=== PATIENT | female | born 1965 | race Caucasian/White ===

== ENCOUNTER 2019-02-10 16:55 | Inpatient (IN) | payer MEDICARE, MEDICAID ==
[~2019-02-10] VITALS: Ht 175.3 cm; Wt 74.0 kg
[2019-02-10] MEDS ORDERED: acetaminophen 325mg tablet PO PRN (19:30)
[2019-02-10] MEDS ORDERED: NICOTINE POLACRILEX 2 MG LOZENGE MM PRN (19:30)
[2019-02-10] MEDS ORDERED: hydrOXYzine 25 MG tablet PO PRN (19:30)
[2019-02-10] MEDS ORDERED: magnesium hydroxide 30ml (MOM) UD suspension PO PRN (19:30)
[2019-02-10 20:37] VITALS: BP 100/75
[2019-02-10] MEDS: mag hydrox/Alum hydrox/simeth 30ml oral suspension PO PRN (22:32)
--- NOTE | 2019-02-10 23:30 | NUR ---
Admission note: Pt admitted to floor at 2030 hours, accompanied by mehul Gill. pt was transferred from [facility] on a 5150 for dts after attempting suicide by overdose of medications. Pt was found down by neighbors performing a welfare check after family had not heard from her. pt was intubated and admitted to ICU due to respiratory failure and possible metabolic encephalopathy. Pt is now denying suicide attempt, stating that she was just medicating her pain and woke up in the hospital. Pt has a hx of suicide attempt and lost her brother and stepdad to suicide.
--- NOTE | 2019-02-11 00:50 | NUR ---
Nursing Progress Note: Chief Complaint: Depression Legal hold: 5150 Client on involuntary status for DTS. Why are they here: Pt was admitted from [facility] on a 5150 for dts after attempting suicide by od of various medications. pt was found down by neighbors conducting a welfare check. pt was intubated and admitted to icu for respiratory failure. Pt denies attempting suicide, but has a hx of suicide attempt in past. pt lost her brother and stepfather to suicide. Assessment What has happened this shift: Pt was brought to [facility] at 2030, appearing clean, dressed in pajamas. Pt was oriented to unit, given burrito for snack before 1:1. pt is cooperative and friendly during assessment, but appears to be minimizing her actions. She denies attempting suicide, stating that she was just sad and lonely and took medication to feel better. She reports being close to her daughter and states that she loves her grandchildren too much to commit suicide. Pt is planning [place] be with her new boyfriend. Pt denies having a mental health dx, but has a hx of suicide attempt. pt was given tylenol for chronic back pain. Pt is hard of hearing and uses hearing aids, but only brought her left one with her. S/I, H/I:denies A/VH: denies Sleep:asleep now ADL's:showered before arriving, independent. Group attendance:n/a Were meds taken:yes Any med S/E: no Mental Status Exam Appearance:clean, neat Eye contact:direct Behavior: cooperative Speech:clear Mood:tired Affect:congruent to mood Thought process:linear Thought Content:being fatigues Cognition:A/O x4 Insight:poor Judgment:poor Interventions PRN's used:tylenol Therapeutic interventions:1:1 assessment, establishment of rapport, active listening, reality orientation, medication administration/education/monitoring, encouragement to perform personal care and attend groups, maintained Q 15 min safety checks. Restraints/seclusion/emergency medication:N/A Justification of continued inpatient treatment:Requires interruption of current crisis, medication adjustments, and a safe and supportive environment to prevent readmission.
[2019-02-11 05:32] LABS: CHOLESTEROL 138 MG/DL (0-200); HDL CHOLESTEROL 23 MG/DL (35-60); LDL CHOLESTEROL 90 MG/DL (50-100); TRIGLYCERIDES 162 MG/DL (20-135)
[2019-02-11] MEDS: nicotine 21mg patch - 24 hr TD SCH (08:00)
[2019-02-11 08:19] VITALS: BP 103/64
[2019-02-11] MEDS ORDERED: FLU VACC QS 2019-20 (6 MOS UP) 60 MCG/0.5 ML VIAL IMVAC ONE (10:00)
[2019-02-11] MEDS ORDERED: CITA20TA28 PO (10:09)
[2019-02-11] MEDS ORDERED: DULO-31 PO (10:09)
[2019-02-11] MEDS ORDERED: MELO7.5T12 PO (10:09)
[2019-02-11] MEDS ORDERED: CLON-528 PO (10:09)
[2019-02-11] MEDS ORDERED: LIT300C PO (10:09)
[2019-02-11] MEDS ORDERED: ATOM40CA PO (10:09)
[2019-02-11] MEDS ORDERED: DIPH25CA83 PO (10:09)
[2019-02-11] MEDS ORDERED: GABA600T13 PO (10:09)
[2019-02-11] MEDS ORDERED: BACL10TA PO (10:09)
[2019-02-11] MEDS ORDERED: METF500T PO (10:09)
[2019-02-11] MEDS ORDERED: OLAN2.5T3 PO (10:09)
[2019-02-11] MEDS ORDERED: BUSP5TAB3 PO (10:09)
[2019-02-11] MEDS ORDERED: OXCA300T16 PO (10:09)
[2019-02-11] MEDS: acetaminophen 325mg tablet PO PRN ×2 (10:23→20:11)
[2019-02-11] MEDS: loperamide 2mg capsule PO PRN ×2 (15:32→20:55)
[2019-02-11] MEDS: naproxen 500mg tablet PO SCH (17:56)
--- NOTE | 2019-02-11 18:08 | NUR ---
Nursing Progress Note: Chief Complaint: Depression Legal hold: 5150 Client on involuntary status for DTS. Why are they here: Pt was admitted from [facility] on a 5150 for dts after attempting suicide by od of various medications. pt was found down by neighbors conducting a welfare check. pt was intubated and admitted to icu for respiratory failure. Pt denies attempting suicide, but has a hx of suicide attempt in past. pt lost her brother and stepfather to suicide. Assessment What has happened this shift: Pt is resting in bed peacefully at change of shift. Pt denies SI/HI/ A/VH and states that she "feels fine". She takes her medications and is pleasant and cooperative with care. Pt is hard of hearing and uses hearing aids, but only brought her left one with her. Called [facility] in [place] and reconciled medications over the phone with Ivon. She c/o back and right hip pain and PRN Tylenol is given with minimal relief. Pt was also seen JOSUÉ Cespedes and started on Celexa. JOSUÉ Cano gave verbal order for Naprosyn 500mg BID which patient received first dose at 1730. Pt is seen resting intermittently throughout the day. She eats her meals and participated in group in the community room. She uses her 4 WW with a seat to ambulate intermittently. Order shows that she is in need of her Flu shot. This was not given this shift as it was not delivered from pharmacy and time constraints at end of shift did not permit leaving the unit to retrieve this. She reported having some loose stools and Imodium was administered PRN with reported relief. S/I, H/I:denies A/VH: denies Sleep:naps intermittently ADL's: independent. Group attendance:yes Were meds taken:yes Any med S/E: none noted or observed Mental Status Exam Appearance:clean, neat in street clothing Eye contact:direct Behavior: cooperative Speech:clear Mood:tired, euthymic Affect:congruent to mood Thought process:linear Thought Content:being in pain Cognition:A/O x4 Insight:poor Judgment:poor Interventions PRN's used:tylenol, Imodium Therapeutic interventions:1:1 assessment, establishment of rapport, active listening, reality orientation, medication administration/education/monitoring, encouragement to perform personal care and attend groups, maintained Q 15 min safety checks. Restraints/seclusion/emergency medication:N/A Justification of continued inpatient treatment:Requires interruption of current crisis, medication adjustments, and a safe and supportive environment to prevent readmission.
[2019-02-11 20:00] VITALS: BP 110/61
[2019-02-11] MEDS: mag hydrox/Alum hydrox/simeth 30ml oral suspension PO PRN (20:55)
[2019-02-11] MEDS: LORazepam 1 MG tablet PO PRN (20:55)
[2019-02-11] MEDS ORDERED: albuterol 2.5 MG/3 ML nebule NEB PRN (22:40)
--- NOTE | 2019-02-12 02:01 | NUR ---
Nursing Progress Note: Legal hold: 5150 Client on involuntary status for DTS Report received from nurse with use of SBAR: Jac RN Why are they here: Pt was admitted from [facility] on a 5150 for DTS after attempting suicide by overdose with various medications. pt was found down by neighbors conducting a welfare check. She required intubation in the ER, and was later admitted to ICU for respiratory failure. Pt denies attempting suicide, but has a hx of suicide attempts in past. Pt. lost her brother and stepfather to suicide. Assessment What has happened this shift: Pt. sitting in the Group Room at the beginning of the shift, coloring and interacting appropriately with others. This comic writer introduced self and established rapport, pt. presents as cooperative and pleasant. 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 in order to be understood. Pt. attends HS snack, and later requests pain medication for chronic pain in her right hip, and an anxiolytic, PRN Tylenol and Atrax administered with some effectiveness. Pt. then retreats to bed, continues to use FWW for ambulation, and fall precautions remain in place. PRN Ativan (pt. reports Atrax ineffective), Imodium, and Maalox administered upon request, however pt. denies any further loose stools this shift. 1:1 completed at bedside, pt. denies S/I, and continues to minimize any s/s. She states, "I just took the Clonazepam because I was tired and I have difficulty sleeping." She reports that she has a lot to live for including four grandchildren and a dog that she is currently missing a lot. Pt. reports that her main issues right now are just anxiety and chronic hip pain, which she states began after being admitted to the hospital and laying in the hospital bed. Will endorse to AM shift and continue to monitor. S/I, H/I: Denies, continues to minimize A/VH: Denies Sleep: Reports some anxiety at HS and difficulty falling asleep, PRN Ativan administered with effectiveness ADL's: Independent, however pt. uses a FWW for ambulation r/t generalized weakness Group attendance: Pt. attends HS snack Were meds taken: Yes Any med S/E: None Mental Status Exam Appearance: Neat and appropriately dressed Eye contact: Good Behavior: Cooperative and anxious Speech: Soft, WNL Mood: Pleasant Affect: Blunted Thought process: Linear Thought Content: Preoccupation with anxiety, however appears to be minimizing any MH s/s Cognition: A&O X4 Insight: Poor Judgment: Poor Interventions PRN's used: Atrax, Ativan, Imodium, and Maalox Therapeutic interventions: Introduced self and established rapport, ensured contract for safety, monitored behaviors and need for intervention, maintained fall precautions, obtained HS BS, and maintained Q 15 min safety checks. Restraints/seclusion/emergency medication: N/A Justification of Continued Inpatient Treatment: Pt. requires interruption of current crisis, medication adjustments, and a safe and supportive environment.
[2019-02-12] MEDS: metFORMIN 500mg tablet PO SCH ×2 (08:01→17:05)
[2019-02-12] MEDS: naproxen 500mg tablet PO SCH ×2 (08:01→17:05)
[2019-02-12] MEDS: nicotine 21mg patch - 24 hr TD SCH (08:01)
[2019-02-12] MEDS: citalopram 20mg tablet PO SCH (08:01)
[2019-02-12 08:05] VITALS: BP 111/57
--- NOTE | 2019-02-12 13:23 | NUR ---
Met with Ct yesterday to complete Psychosocial Assessment. She currently has services at [facility]. Gricelda from [facility] is going to meet with Ct this afternoon or evening to see if Ct meets criteria for services at [facility]. BIJAN Zayas Addendum: 02/12/19 at 1325 by Candy Younger SS Amended: Links added.
[2019-02-12] MEDS: acetaminophen 325mg tablet PO PRN (15:25)
--- NOTE | 2019-02-12 17:39 | NUR ---
Nursing Progress Note: Legal hold: 5150 Client on involuntary status for DTS Report received from ALEXANDRIA Jorge with use of SBAR Why are they here: Pt was admitted from [facility] on a 5150 for DTS after attempting suicide by overdose with various medications. pt was found down by neighbors conducting a welfare check. She required intubation in the ER, and was later admitted to ICU for respiratory failure. Pt denies attempting suicide, but has a hx of suicide attempts in past. Pt. lost her brother and stepfather to suicide. Assessment What has happened this shift: The patient was asleep at change of shift. She was quite sleepy in the morning, returning to bed after breakfast for most of morning. She was up and about unit several times in afternoon. Had hip pain and was given Tylenol and again returned to bed. Denies suicidal thoughts and is looking forward to the future stating, "I feel so much better now." Has children and grandchildren that she "wants to be alive for." S/I, H/I: Denies A/VH: Denies Sleep: Napped several times today ADL's: Independent, however pt. uses a FWW for ambulation r/t generalized weakness Group attendance: yes Were meds taken: Yes Any med S/E: None Mental Status Exam Appearance: Neat and appropriately dressed Eye contact: Good Behavior: Cooperative Speech: Soft, UTE Mood: Pleasant Affect: Calm Thought process: Linear Thought Content: minimizing recent suicide attempt and ICU care Cognition: A&O X4 Insight: Poor Judgment: Poor Interventions PRN's used: Tylenol Therapeutic interventions: Introduced self and established rapport, ensured contract for safety, monitored behaviors and need for intervention, maintained fall precautions, obtained HS BS, and maintained Q 15 min safety checks. Restraints/seclusion/emergency medication: N/A Justification of Continued Inpatient Treatment: Pt. requires interruption of current crisis, medication adjustments, and a safe and supportive environment.
[2019-02-12 20:00] VITALS: BP 112/63
[2019-02-12] MEDS ORDERED: non-formulary drug (Meloxicam (Mobic) 1 TAB) PO SCH (20:00)
[2019-02-12] MEDS: mag hydrox/Alum hydrox/simeth 30ml oral suspension PO PRN (20:45)
[2019-02-12] MEDS: Melatonin 3mg tablet PO PRN (20:46)
[2019-02-12] MEDS: gabapentin 300mg capsule PO SCH (20:46)
[2019-02-12] MEDS ORDERED: traZODone 50mg tablet PO PRN (22:55)
[2019-02-12] MEDS ORDERED: guaiFENesin/DM 10ml UD oral syrup PO PRN (22:55)
--- NOTE | 2019-02-12 23:59 | NUR ---
Nursing Progress Note: Legal hold: 5150 Exp 02/13 @2024 Client on involuntary status for DTS Report received from ALEXANDRIA Keith with use of SBAR Why are they here: Pt was admitted from [facility] on a 5150 for DTS after attempting suicide by overdose with various medications. pt was found down by neighbors conducting a welfare check. She required intubation in the ER, and was later admitted to ICU for respiratory failure. Pt denies attempting suicide, but has a hx of suicide attempts in past. Pt. lost her brother and stepfather to suicide. Assessment What has happened this shift: Pt was in her room at shift change. This machine sign writer introduced self and established rapport. Pt was engaging and began talking about how she probably wont be discharged tomorrow. Pt is tearful and states that she realizes that she made a mistake and states I dont remember taking all those pills. When asked if she realized the lethality of what she did, but was not engaging. It appears the patient is minimizing her SA. Pt states she feels like her children ignore her, especially her daughter, she goes to the grocery store down the road from me and never stops by to visit. I feel broken hearted and sad, not depressed. Pts blood sugar was 103. Pt also refused the Influenza shot, states she will get it when she is discharged and see her PCP. Pt has a productive cough and Robitussin DM was administered. Pt requested to leave her Nicotine patch on; pt was educated on side effects i.e., trouble sleeping, night ward. S/I, H/I: Pt denies. A/VH: Pt denies. Sleep: See Sleep Assessment Notation. Melatonin 3mg administered. ADL's: Independent; noted pt uses FWW PRN. Pt ambulated without walker this shift with stable gait. 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 Pt wants a better relationship w/daughter. Cognition: A&O X4 Insight: Poor Judgment: Poor Interventions PRN's used: Robitussin, Melatonin, Maalox Therapeutic interventions: Introduced self and established rapport, ensured contract for safety, monitored behaviors and need for intervention, medication administration/education/monitoring, obtained HS blood sugar; maintained Q 15 min safety checks. Restraints/seclusion/emergency medication: N/A Justification of Continued Inpatient Treatment: Pt. requires interruption of current crisis, medication adjustments, and a safe and supportive environment.
[2019-02-13 08:00] VITALS: BP 105/60
[2019-02-13 08:05] VITALS: BP 115/71
[2019-02-13] MEDS: citalopram 20mg tablet PO SCH (08:22)
[2019-02-13] MEDS: nicotine 21mg patch - 24 hr TD SCH (08:22)
[2019-02-13] MEDS: gabapentin 300mg capsule PO SCH ×2 (08:23→20:26)
[2019-02-13] MEDS: naproxen 500mg tablet PO SCH ×2 (08:23→16:57)
[2019-02-13] MEDS: metFORMIN 500mg tablet PO SCH ×2 (08:23→16:57)
--- NOTE | 2019-02-13 11:05 | NUR ---
FALL The patient fell today in the group room at 0805. The fall was witnessed by staff. The patient was sitting in a chair with a water pitcher in one hand and hot tea in the other hand when she attempted to stand up, she fell forward unto her knees and then onto right shoulder. She had a small skin tear on her right knee and mild bruising of knees bilaterally, and c/o pain in her right shoulder area. Dr. Sutton was notified and an xray of shoulder ordered which was negative. Knee was cleansed and dressed, ice applied bilaterallyto knees and to right shoulder. Pain medications administered. VSS. Occurence report completed, Plan of Care updated for fall risk and FALL wrist band applied. Patient was educated about using her walker and and not trying to get up from chair without being able to use her hands. Reassured she can ask for help at anytime and staff will assist her. She was checked on numerous times afterwards and feeling better. She was seen in the hallway ambulating without walker, which was retrieved for her. States she still wants to "have a good day and attend groups."
[2019-02-13] MEDS: LORazepam 1 MG tablet PO PRN (12:31)
[2019-02-13] MEDS: acetaminophen 325mg tablet PO PRN ×2 (12:33→20:27)
--- NOTE | 2019-02-13 13:56 | NUR ---
Nursing Progress Note: Legal hold: 5150 Client on involuntary status for DTS Report received from ALEXANDRIA Harrison with use of SBAR Why are they here: Pt was admitted from [facility] on a 5150 for DTS after attempting suicide by overdose with various medications. pt was found down by neighbors conducting a welfare check. She required intubation in the ER, and was later admitted to ICU for respiratory failure. Pt denies attempting suicide, but has a hx of suicide attempts in past. Pt. lost her brother and stepfather to suicide. Assessment What has happened this shift: The patient was asleep at change of shift. Got up for breakfast, had a fall in group room (see previous note.) Minimizing her circumstances and recent suicide attempt/ICU admission. Won't engage or talk about things in depth. States she feels "really good" right now and what happened was "a wake up call." Walking with walker mostly after fall. med compliant. S/I, H/I: Denies A/VH: Denies Sleep: Napped several times today ADL's: Independent, however pt. uses a FWW for ambulation r/t generalized weakness Group attendance: yes Were meds taken: Yes Any med S/E: None Mental Status Exam Appearance: Neat and appropriately dressed Eye contact: Good Behavior: Cooperative Speech: Soft, [place]ER [place] Mood: Pleasant Affect: Mild anxiety Thought process: Linear Thought Content: minimizing recent suicide attempt and ICU care Cognition: A&O X4 Insight: Poor Judgment: Poor Interventions PRN's used: Tylenol Therapeutic interventions: Introduced self and established rapport, ensured contract for safety, monitored behaviors and need for intervention, maintained fall precautions, obtained HS BS, and maintained Q 15 min safety checks. Restraints/seclusion/emergency medication: N/A Justification of Continued Inpatient Treatment: Pt. requires interruption of current crisis, medication adjustments, and a safe and supportive environment.
[2019-02-13 20:00] VITALS: BP 107/61
[2019-02-13] MEDS: Melatonin 3mg tablet PO PRN (20:26)
--- NOTE | 2019-02-13 23:57 | NUR ---
Nursing Progress Note: Legal hold: 5250, ex-02/27/19 @1500 Client on involuntary status for DTS Report received from SANDRA Keith with use of SBAR Why are they here: Pt was admitted from [facility] on a 5150 for DTS after attempting suicide by overdose with various medications. pt was found down by neighbors conducting a welfare check. She required intubation in the ER, and was later admitted to ICU for respiratory failure. Pt denies attempting suicide, but has a hx of suicide attempts in past. Pt. lost her brother and stepfather to suicide. Assessment What has happened this shift: Introduced self to patient and established rapport. Pt was awake resting comfortably in bed during change of shift. Was complaining of pain and stated that she had asked for another X-ray due to her fall earlier during the day. During 1:1 assessment was very talkative and cooperative. When asked about her current mood she said that she felt good but felt bad about her fall. Pt was seen ambulating with walker in the perea several times. Reenforced pt about the importance of using walker while ambulating. Pt is demonstrating somatic behavior stating, requesting for a Toradol shot and as stated earlier a second X-ray. Scratch from fall on right knee was cleaned and bandage changed. Pt was later observed outside her room asking for food. Nicotine patch removed and Tylenol was administered. Very compliant with her medications. S/I, H/I: Denies A/VH: Denies Sleep: See sleep assessment ADL's: Independent, however pt. uses a FWW for ambulation r/t generalized weakness Group attendance: None during night manager Were meds taken: Yes Any med S/E: None noted or observed Mental Status Exam Appearance: Neat and appropriately dressed Eye contact: Good Behavior: Cooperative Speech: Soft, WNL Mood: Pleasant Affect: Congruent Thought process: Linear Thought Content: focused on fall and pain as a result from it Cognition: A&O X4 Insight: Poor Judgment: Poor Interventions PRN's used: Tylenol Therapeutic interventions: Introduced self and established rapport, ensured contract for safety, monitored behaviors and need for intervention, maintained fall precautions, obtained HS BS, and maintained Q 15 min safety checks. Restraints/seclusion/emergency medication: N/A Justification of Continued Inpatient Treatment: Pt. requires interruption of current crisis, medication adjustments, and a safe and supportive environment.
[2019-02-14 08:00] VITALS: BP 90/62
[2019-02-14] MEDS: citalopram 20mg tablet PO SCH (08:13)
[2019-02-14] MEDS: naproxen 500mg tablet PO SCH ×2 (08:13→16:56)
[2019-02-14] MEDS: metFORMIN 500mg tablet PO SCH ×2 (08:13→16:56)
[2019-02-14] MEDS: nicotine 21mg patch - 24 hr TD SCH (08:13)
[2019-02-14] MEDS: gabapentin 300mg capsule PO SCH ×2 (08:13→20:17)
--- NOTE | 2019-02-14 11:17 | NUR ---
Initial: Pt admit with depression, currently on a CHO controlled diet documented with 75-100% PO intake meeting nutrient needs. LBM 02/13. No edema or wounds. No nutrition diagnosis at this time. Will continue to follow. Recommendations: 1) Continue CHO controlled diet 2) Bowel care PRN 3) Weekly wt Addendum: 02/14/19 at [address] Amended: Links added.
--- NOTE | 2019-02-14 13:19 | NUR ---
Nursing Progress Note Legal hold: 5250 Client on involuntary status for DTS Report received from ALEXANDRIA Harrison with use of SBAR Why are they here: Pt was admitted from [facility] on a 5150 for DTS after attempting suicide by overdose with various medications. pt was found down by neighbors conducting a welfare check. She required intubation in the ER, and was later admitted to ICU for respiratory failure. Pt denies attempting suicide, but has a hx of suicide attempts in past. Pt. lost her brother and stepfather to suicide. Assessment What has happened this shift: The patient was asleep at change of shift.She was up to breakfast and socializing with her peers. Reports right shoulder feeling much better today. Happy, social mood with bright affect. Patient is still minimizing her recent suicide attempt. Eating and drinking well. The patient was moved to a different room and handled change without difficulty. S/I, H/I: Denies A/VH: Denies Sleep: Napped ADL's: Independent Group attendance: yes Were meds taken: Yes Any med S/E: None Mental Status Exam Appearance: Neat and appropriately dressed Eye contact: Good Behavior: Cooperative Speech: Soft, [place] Mood: Pleasant Affect: Happy Thought process: Linear Thought Content: minimizing recent suicide attempt Cognition: A&O X4 Insight: Poor Judgment: Poor Interventions PRN's used: None Therapeutic interventions: Introduced self and established rapport, ensured contract for safety, monitored behaviors and need for intervention, maintained fall precautions, obtained HS BS, and maintained Q 15 min safety checks. Restraints/seclusion/emergency medication: N/A Justification of Continued Inpatient Treatment: Pt. requires interruption of current crisis, medication adjustments, and a safe and supportive environment.
[2019-02-14] MEDS: acetaminophen 325mg tablet PO PRN (14:12)
[2019-02-14] MEDS ORDERED: padimate O/petrolatum,white stick (Chapstick) TP PRN (19:45)
[2019-02-14 20:00] VITALS: BP 104/60
[2019-02-14] MEDS: Melatonin 3mg tablet PO PRN (20:17)
[2019-02-14] MEDS: LORazepam 1 MG tablet PO PRN (22:01)
--- NOTE | 2019-02-15 00:42 | NUR ---
Nursing Progress Note: Legal hold: 5250 Exp 02/27 @ 1500 Client on involuntary status for DTS Report received from ALEXANDRIA Keith with use of SBAR Why are they here: Pt was admitted from [facility] on a 5150 for DTS after attempting suicide by overdose with various medications. pt was found down by neighbors conducting a welfare check. She required intubation in the ER, and was later admitted to ICU for respiratory failure. Pt denies attempting suicide, but has a hx of suicide attempts in past. Pt. lost her brother and stepfather to suicide. Assessment What has happened this shift: Pt was sitting in rec room at shift change. Pt reports she had a room change today and was happy with it. Pt states she felt like she was isolated in her old room. Pt states she was working on a safe discharge plan to show Dr. Yusuf in the morning. Pt continue to minimize her SA attempt, pt doesn't engage in conversation when asked. Pt denies SI/A/VH, Pt c/o of right shoulder pain, but states it is feeling better. Pt's Nicotine patch was removed and discarded in appropriate container. HS blood sugar was 119. Pt requested an Ativan around 2200 reports anxiety 10/22. Pt is sleeping comfortably as of this writing, will continue to monitor. S/I, H/I: Pt denies. A/VH: Pt denies. Sleep: See Sleep Assessment Notation. Melatonin 3mg administered. ADL's: Independent; noted pt uses FWW. 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 Cognition: A&O X4 Insight: Poor Judgment: Poor Interventions PRN's used: Melatonin, Ativan Therapeutic interventions: 1:1 therapeutic assessment, ensured contract for safety, monitored behaviors and need for intervention, medication administration/education/monitoring, obtained HS blood sugar; maintained Q 15 min safety checks. Restraints/seclusion/emergency medication: N/A Justification of Continued Inpatient Treatment: Pt. requires interruption of current crisis, medication adjustments, and a safe and supportive environment.
[2019-02-15] MEDS: naproxen 500mg tablet PO SCH ×2 (07:30→17:43)
[2019-02-15] MEDS: metFORMIN 500mg tablet PO SCH ×2 (07:30→17:43)
[2019-02-15] MEDS: nicotine 21mg patch - 24 hr TD SCH (07:30)
[2019-02-15] MEDS: gabapentin 300mg capsule PO SCH ×2 (07:30→20:57)
[2019-02-15] MEDS: citalopram 20mg tablet PO SCH (07:32)
[2019-02-15 08:07] VITALS: BP 95/59
[2019-02-15] MEDS: acetaminophen 325mg tablet PO PRN ×2 (13:12→20:57)
[2019-02-15] MEDS: LORazepam 1 MG tablet PO PRN ×2 (13:51→20:57)
--- NOTE | 2019-02-15 16:01 | NUR ---
Nursing Progress Note: [facility] Legal hold: 5250 Client on involuntary status for DTS Report received from ALEXANDRIA Nathan with use of SBAR Why are they here: Pt was admitted from [facility] on a 5150 for DTS after attempting suicide by overdose with various medications. pt was found down by neighbors conducting a welfare check. She required intubation in the ER, and was later admitted to ICU for respiratory failure. Pt denies attempting suicide, but has a hx of suicide attempts in past. Pt. lost her brother and stepfather to suicide. Assessment What has happened this shift: The patient was asleep at change of shift. She is pleasant and cooperative with care and takes her medications as ordered without incident. AM BG is 126. She is seen in the community room for breakfast and is socializing with her peers. Patient is still minimizing her recent suicide attempt and currently denies SI/HI/ and A/VH. She does not appear to be responding to internal stimuli. The patient denies complaints regarding recent room change. She is seen throughout the day napping in bed intermittently. She appears to be minimizing her recent OD. She still maintains that she was "just trying to rest". Pt denies SI/HI/ or A/VH. She reports pain of 6/10 in her back and PRN Tylenol was given as well as position change and rest which were somewhat affective. She reported feeling anxious and "restless" and requested Ativan which was given with good relief. Patient has chapped lips, after deliberation with Dada Keith RN, patient is allowed to keep her chap stick in her possession. Pt encouraged to increase fluid intake. Pt reports she will work on this. S/I, H/I: Denies A/VH: Denies Sleep: Napped intermittently throughout the shift ADL's: Independent Group attendance: no Were meds taken: Yes Any med S/E: None Mental Status Exam Appearance: street clothes, hair combed Eye contact: Good Behavior: Cooperative Speech: Soft, non-pressured, appropriate az Mood: euthymic Affect: flat Thought process: Linear Thought Content: minimizing recent suicide attempt Cognition: A&O X4 Insight: Poor Judgment: Poor Interventions PRN's used: None Therapeutic interventions: Introduced self and established rapport, ensured contract for safety, monitored behaviors and need for intervention, maintained fall precautions with bed in low position and locked and encouragement to consistently utilize her 4 WW, obtained AC BS, and maintained Q 15 min safety checks. Restraints/seclusion/emergency medication: N/A Justification of Continued Inpatient Treatment: Pt. requires interruption of current crisis, medication adjustments, and a safe and supportive environment.
[2019-02-15 20:00] VITALS: BP 109/68
--- NOTE | 2019-02-16 03:56 | NUR ---
Nursing Progress Note: Legal hold: 5250 Exp 02/27 @ 1500 Client on involuntary status for DTS Report received from ALEXANDRIA Keith with use of SBAR Why are they here: Pt was admitted from [facility] on a 5150 for DTS after attempting suicide by overdose with various medications. pt was found down by neighbors conducting a welfare check. She required intubation in the ER, and was later admitted to ICU for respiratory failure. Pt denies attempting suicide, but has a hx of suicide attempts in past. Pt. lost her brother and stepfather to suicide. Assessment What has happened this shift: Pt is medication compliant and utilized prn Ativan and Tylenol. She is observed socializing with peers and is very friendly to staff. She asks to speak to typewriter assembly and parts inspector about "the night I tried to commit suicide" and asks questions about the ambulance and ICU. Environmental Services Assistant explained to pt what happens during an overdose to the body and she verbalized understanding. Pt is tearful and express remorse and explains that both her son and daughter are both expecting children, and she says, "I can't even imagine what I would have put them through." " I would also like it documented that the main reason why I was feeling so horrible was because of three people I have restraining orers on that live in my apartment complex." "They make it so that I am afraid to even come out of my apartment because they harass me." HS blood glucose was 122 S/I, H/I: Pt denies. A/VH: Pt denies. Sleep: See Sleep Assessment Notation. ADL's: Independent; noted pt uses FWW. Group attendance: power and recovery shift engineer, no group Were meds taken: Medication compliant Any med S/E: None reported or observed Mental Status Exam Appearance: Neat and appropriately dressed Eye contact: Good Behavior: Cooperative, minimizing Speech: Clear, normal rate and rhythm Mood: Pleasant, goal oriented Affect: Bright Thought process: Linear Thought Content: Focused on discharge. Cognition: A&O X4 Insight: Poor Judgment: Poor Interventions PRN's used: Ativan Therapeutic interventions: 1:1 therapeutic assessment, ensured contract for safety, monitored behaviors and need for intervention, medication administration/education/monitoring, obtained HS blood sugar; maintained Q 15 min safety checks. Restraints/seclusion/emergency medication: N/A Justification of Continued Inpatient Treatment: Pt. requires interruption of current crisis, medication adjustments, and a safe and supportive environment.
[2019-02-16 08:00] VITALS: BP 116/63
[2019-02-16] MEDS: metFORMIN 500mg tablet PO SCH (08:12)
[2019-02-16] MEDS: gabapentin 300mg capsule PO SCH (08:12)
[2019-02-16] MEDS: citalopram 20mg tablet PO SCH (08:12)
[2019-02-16] MEDS: nicotine 21mg patch - 24 hr TD SCH (08:15)
[2019-02-16] MEDS: naproxen 500mg tablet PO SCH (08:47)
[2019-02-16] MEDS: acetaminophen 325mg tablet PO PRN (10:21)
[2019-02-16] MEDS ORDERED: CITA40TA22 PO (16:26)
[2019-02-16] MEDS ORDERED: NICO-687 TD (16:26)
[2019-02-16] MEDS ORDERED: TRAZ-251 PO (16:26)
--- NOTE | 2019-02-16 17:45 | NUR ---
Discharge Note: Pt. discharged to her home driven by her daughter. Pt. denies SI/HI, A/V hallucinations. Pt. is calm and cooperative. Pt. in no apparent psychological or emotional distress. Pt. given written instructions for discharge medications and f/u plan, pt. verbalizes understanding. Pt. discharged with all belongings. Medications called in to [facility] [place]. RN called [facility] [place] to d/c Stratters, baclofen, buspirone, clonazepam, benadryl, cymbalta, lithium, zyprexa, trileptal per provider's order.
== END 2019-02-16 18:55 | disposition home or self-care (01) | DRG 885 ==
LOC: ADULT MH 16:55
PROVIDERS: ADMIT Psychiatry & Neurology Psychiatry; ATTEND Psychiatry & Neurology Psychiatry
DX: F33.2 Major depressive disorder, recurrent severe without psychotic features (principal); F43.11 Post-traumatic stress disorder, acute; T14.91XA Suicide attempt, initial encounter; E11.9 Type 2 diabetes mellitus without complications; F17.210 Nicotine dependence, cigarettes, uncomplicated; J44.9 Chronic obstructive pulmonary disease, unspecified; W07.XXXA Fall from chair, initial encounter; W18.39XA Other fall on same level, initial encounter; Y93.89 Activity, other specified; Y92.89 Other specified places as the place of occurrence of the external cause; Z88.6 Allergy status to analgesic agent; Z83.3 Family history of diabetes mellitus; Z81.8 Family history of other mental and behavioral disorders
CPT/HCPCS: 36415; 73030; 80061; 82948; 87081; 94760; 99285; Z7610

== ENCOUNTER 2019-03-31 20:07 | Emergency (ER) | payer MEDICARE, MEDICAID ==
[~2019-03-31] VITALS: Ht 172.7 cm; Wt 72.7 kg
[~2019-03-31 20:07] MED LIST: CITA40TA22 PO; GABA600T13 PO; MELO7.5T12 PO; METF500T PO; NICO-687 TD; TRAZ-251 PO
[2019-03-31 20:10] VITALS: BP 147/92
[2019-03-31] MEDS ORDERED: ketorolac trometh inj. 60 MG/2 ML VIAL IM ONE (20:50)
== END 2019-03-31 21:23 | disposition home or self-care (01) ==
LOC: ER 20:08
DX: M75.101 Unspecified rotator cuff tear or rupture of right shoulder, not specified as traumatic (principal); G89.29 Other chronic pain; J44.9 Chronic obstructive pulmonary disease, unspecified; E11.9 Type 2 diabetes mellitus without complications; Z90.49 Acquired absence of other specified parts of digestive tract; Z88.5 Allergy status to narcotic agent; Z88.8 Allergy status to other drugs, medicaments and biological substances; Z79.899 Other long term (current) drug therapy
CPT/HCPCS: 96372; 99283; J1885